=== PATIENT | female | born 1950 | race American Indian/Alaskan Native ===

== ENCOUNTER 2021-11-09 21:21 | Observation (INO) | payer MEDICARE ==
[2021-11-09] MEDS ORDERED: ONDANSETRON 4 MG/2 ML INJ IV ONE (21:47)
[2021-11-09] MEDS ORDERED: SODIUM CHLORIDE 0.9% 1000 ML 1,000 ML IV ONE (21:47)
--- NOTE | 2021-11-09 22:13 | Emergency Department Report ---
<DIMITRIS SEBASTIAN - Last Filed: 11/10/21 06:00> ED General Adult HPI - General Chief complaint: Hyperglycemia Stated complaint: HYPERGLYCEMIA Time Seen by Provider: 11/09/21 21:33 Source: patient, EMS Mode of arrival: Stretcher Limitations: No Limitations - History of Present Illness Initial comments: 71 yo F with h/o DM and Hypertension who is visiting daughter from [place] brought in by EMS with generalized weakness associated with unstable blood sugar. Pt says she arrived in [place] last Tuesday and have been having diarrhea since then couple with the above symptoms. She says her blood sugar could be 32 mg/dl in the morning and as high as 150 mg/dl in the afternoon. Appetite is down as well. No fever or chills reported. Pt denies any other modifying or associated factors. Pt daughter Lucy at [phone] who she was visiting left a note with patient that i should call her before any treatment is given. I called her and she confirmed the above story and added that patient has been noticed to be in rapid declined in the past few months. Pt and her was actually visiting [place] to look at properties as they were thinking of moving close to Lucy here in [place]. Pt was suppose to be flying back to [place] today when she went into the airport bathroom and forget how to unlock the door and they missed their flight as a result. She also mentioned that her mother was suppose to be in Stomach cancer remission but have been having intermittent abdominal distension and diarrhea in the last few months. Since she has been with her on Tuesday she has been in bed not eating or drinking much. She also have had a fall but patient denies any VILLAREAL or LOC. - Related Data Allergies Allergy/AdvReac Type Severity Reaction Status Date / Time No Known Allergies Allergy Unverified 11/09/21 21:27 ED Review of Systems Comment: All other systems reviewed and negative Constitutional: weakness Gastrointestinal: diarrhea Neurological: weakness ED Physical Exam - General Limitations: No Limitations General appearance: alert, in no apparent distress - Head Head exam: Present: atraumatic, normal inspection - Eye Eye exam: Present: normal appearance Pupils: Present: normal accommodation - ENT ENT exam: Present: normal exam, normal orophraynx, mucous membranes dry - Neck Neck exam: Present: normal inspection, full ROM. Absent: tenderness - Respiratory Respiratory exam: Present: normal lung sounds bilaterally. Absent: respiratory distress, accessory muscle use - Cardiovascular Cardiovascular Exam: Present: regular rate, normal rhythm, normal heart sounds - GI/Abdominal GI/Abdominal exam: Present: soft, normal bowel sounds. Absent: distended, tenderness - Extremities Exam Extremities exam: Present: normal inspection, normal capillary refill. Absent: pedal edema - Back Exam Back exam: Absent: tenderness - Neurological Exam Neurological exam: Present: alert, oriented X3 - Psychiatric Psychiatric exam: Present: normal affect, normal mood - Skin Skin exam: Present: warm, normal color ED Course - Reevaluation(s) Reevaluation #1: 11/10/21 05:20 given aspirin for likely pericarditis Reevaluation #2: 11/10/21 05:25 Pt signed out to Dr Ohara while waiting for the UA to determine antibiotics need-- considering this patient age may need to be admitted for observation. Reevaluation #3: 11/10/21 06:00 Pt signed out to Dr Ohara while waiting for urinalysis-- and will need to call patient's daughter Lucy at [phone] and explain the likelihood of admission and the walking diagnosis acute renal injury, dehydration, hyperglycemia and anemia. ED Medical Decision Making - Lab Data Result diagrams: 11/09/21 21:59 11/09/21 21:59 - EKG Data -: EKG Interpreted by Me EKG shows normal: sinus rhythm - EKG Data 11/10/21 05:19 Noted with sinus dysrhythmia at the rate of 73 bpm suggestive of acute pericarditis - Medical Decision Making here with generalized weakness associated with diarrhea with hypoglycemia-- this patient diarrhea could have cause her generalized weakness and hypoglycemia could have contributed to her weakness as well. Not eating and drinking could have caused dehydration which could lead to weakness Noted with likely pericarditis on EKG but with normal troponin-- given aspirin Also noted with elevated BNU/Cr 32/2.4 likely as result of dehydration -- will continue to hydration with ivf ns 1L bolus x 1-- Blood sugar at 276 with unremarkable anion cap -- given insulin 5 units and hydration with ns -- will recheck blood sugar Also noted with low H&H 8.9/27.2 and patient denies any bloody stool-- this is likely chronic -- ED Disposition Clinical Impression: Generalized weakness, Dehydration, Hyperglycemia, Renal insufficiency, mild, UTI (urinary tract infection), AMS (altered mental status), Brittle diabetes mellitus, Creatinine elevation Disposition: 02 SHORT TERM [facility]OSPITAL Is pt being admited?: No Does the pt Need Aspirin: No Condition: Stable Referrals: PRIMARY CARE, [Primary Care Provider] - 3-5 Days <KARSTEN MOSES - Last Filed: 11/10/21 10:29> ED Review of Systems ROS: Stated complaint: HYPERGLYCEMIA Other details as noted in HPI ED Course Vital Signs 11/09/21 11/10/21 11/10/21 21:25 03:44 03:45 Temperature 98.1 F Pulse Rate 81 Respiratory 16 Rate Blood Pressure 127/77 Blood Pressure 137/77 [Right] O2 Sat by Pulse 100 85 88 Oximetry 11/10/21 11/10/21 11/10/21 04:00 04:16 04:30 Temperature Pulse Rate Respiratory Rate Blood Pressure 131/74 139/73 146/76 Blood Pressure [Right] O2 Sat by Pulse 91 92 92 Oximetry 11/10/21 11/10/21 11/10/21 04:46 05:00 05:16 Temperature Pulse Rate Respiratory Rate Blood Pressure 146/76 139/73 136/73 Blood Pressure [Right] O2 Sat by Pulse 90 89 92 Oximetry 11/10/21 11/10/21 11/10/21 05:30 05:46 06:00 Temperature Pulse Rate Respiratory Rate Blood Pressure 127/74 127/74 134/73 Blood Pressure [Right] O2 Sat by Pulse 93 93 92 Oximetry 11/10/21 11/10/21 11/10/21 06:16 06:30 06:56 Temperature Pulse Rate Respiratory Rate Blood Pressure 135/70 140/74 134/73 Blood Pressure [Right] O2 Sat by Pulse 91 91 99 Oximetry 11/10/21 07:00 Temperature Pulse Rate Respiratory Rate Blood Pressure 132/71 Blood Pressure [Right] O2 Sat by Pulse 96 Oximetry - Reevaluation(s) Reevaluation #4: 11/10/21 10:[address] ESPINOZA WHO STATES PATIENT WILL GO TO DR. SR. ED Medical Decision Making - Lab Data Result diagrams: 11/09/21 21:59 11/09/21 21:59 Critical care attestation.: If time is entered above; I have spent that time in minutes in the direct care of this critically ill patient, excluding procedure time. ED Disposition Is pt being admited?: Yes Time of Disposition: 10:27
[2021-11-09 22:19] LABS: Basophils # (Auto) 0.1 K/mm3 (0.0-0.1); Basophils % (Auto) 0.6 % (0.0-1.8); Eosinophils # (Auto) 0.3 K/mm3 (0.0-0.4); Hematocrit 27.2 % (30.3-42.9); Hemoglobin 8.9 gm/dl (10.1-14.3); Lymphocytes # (Auto) 1.5 K/mm3 (1.2-5.4); Lymphocytes % (Auto) 10.8 % (13.4-35.0); Mean Corpuscular HGB Conc 33 % (30-34); Mean Corpuscular Volume 87 fl (79-97); Monocytes # (Auto) 1.1 K/mm3 (0.0-0.8); Red Blood Count 3.13 M/mm3 (3.65-5.03); Red Cell Distribution Width 15.7 % (13.2-15.2)
[2021-11-09 22:31] LABS: Platelet Count 262 K/mm3 (140-440)
[2021-11-09 22:43] LABS: Albumin 3.1 g/dL (3.9-5); Calcium 9.5 mg/dL (8.4-10.2)
[2021-11-10] MEDS ORDERED: ASPIRIN 81 MG TAB CHEW PO ONE (05:19)
[2021-11-10] MEDS ORDERED: INSULIN REGULAR, HUMAN 100 UNITS/1 ML IV ONE (05:24)
[2021-11-10 07:07] LABS: Bacteria,Urine 2+ /HPF (Negative); Hyaline Casts,Urine 14 /LPF; Mucus,Urine 1+ /HPF
[2021-11-10 07:08] LABS: Bilirubin,Urine NEG (Negative); Blood,Urine Trace (Negative); Color,Urine Straw (Yellow)
[2021-11-10 07:09] LABS: Urobilinogen,Urine < 2.0 mg/dL (<2.0)
[2021-11-10] MEDS ORDERED: cefTRIAXone/NS 1 GM/50 ML 1 GM/50 ML BAG IV ONE (10:04)
[2021-11-10] MEDS ORDERED: cefTRIAXone/NS 1 GM/50 ML 1 GM/50 ML BAG IV SCH (11:30)
--- NOTE | 2021-11-10 12:53 | History and Physical Report ---
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 Pt says she arrived in [place] last Tuesday and have been having diarrhea since then. She says her blood sugar could be 32 mg/dl in the morning and as high as 150 mg/dl in the afternoon. Appetite is down as well. No fever or chills reported. Pt denies any other modifying or associated factors. Pt was suppose to be flying back to [place] today when she went into the airport bathroom and forget how to unlock the door and they missed their flight as a result. She also have had a fall but patient denies any VILLAREAL or LOC. In the ER work-up significant for possible UTI, NAEEM with hyperkalemia and leukocytosis. Patient is alert awake and oriented x3 during my encounter and able to provide history. Patient is being admitted for further work-up. Review of System: Constitutional: no fever, no chills, no weight loss Ears, eyes, nose, mouth and throat: no nasal congestion, no nasal discharge, no sinus pressure, no vision change, no red eye. Neck: No neck pain or rigidity. Cardiovascular: No chest pain, no orthopnea, no palpitations, no leg swelling Respiratory: No shortness of breath, no cough, no congestion, no wheezing Gastrointestinal: no abdominal pain, no nausea, no vomiting Genitourinary : no dysuria, no hematuria Musculoskeletal: no joint swelling or muscle ache Integumentary: no rash, no pruritis Neurological: no parathesias, no numbness, no tingling Endocrine: no cold or heat intolerance, no polyuria or polydipsia Hematologic/Lymphatic: no easy bruising, no easy bleeding, no gland swelling Allergic/Immunologic: no urticaria, no angioedema. Past History Past Medical History: cancer (h/o Ca stomach on 2004), diabetes, hypertension, hyperlipidemia Past Surgical History: bowel surgery Social history: Lives alone. denies: smoking, alcohol abuse Family history: diabetes, hypertension Medications and Allergies Allergies Allergy/AdvReac Type Severity Reaction Status Date / Time No Known Allergies Allergy Unverified 11/09/21 21:27 Home Medications Medication Instructions Recorded Confirmed Last Taken Type Atorvastatin [Lipitor] 40 mg PO HS 11/10/21 11/10/21 11/09/21 History DULoxetine [Cymbalta] 60 mg PO DAILY 11/10/21 11/10/21 11/09/21 History Levothyroxine [Synthroid] 150 mcg PO DAILY 11/10/21 11/10/21 11/09/21 History Acetaminophen [Acetaminophen TAB] 650 mg PO Q4H PRN tablet 11/11/21 Unknown Rx Ciprofloxacin HCl [Ciprofloxacin 500 mg PO BID 3 Days #7 11/11/21 Unknown Rx TAB] Insulin Regular, Human [HumuLIN R] 0 units SUB-Q Q4H 30 Days 11/11/21 Unknown Rx amLODIPine 5 mg PO DAILY #30 11/11/21 Unknown Rx Active Meds: Active Medications Acetaminophen (Acetaminophen 325 Mg Tab) 650 mg PO Q4H PRN PRN Reason: Pain MILD(1-3)/Fever >100.5/VILLAREAL Hydrocodone Bitart/Acetaminophen (Hydrocodone/Acetaminophen 5-325 Mg Tab) 2 each PO Q6H PRN PRN Reason: Pain, Moderate (4-6) Famotidine (Famotidine 20 Mg Tab) 20 mg PO BID [facility] Heparin Sodium (Porcine) (Heparin 5,000 Unit/1 Ml Vial) 5,000 unit SUB-Q Q12HR [facility] Ceftriaxone Sodium (Rocephin/Ns 1 Gm/50 Ml) 1 gm in 50 mls @ 100 mls/hr IV ONC E@1130 MARIAELE[facility]; Protocol Stop: 11/14/21 14:30 Dextrose/Sodium Chloride (D5ns) 1,000 mls @ 75 mls/hr IV DIRECT [facility]IA[facility] Morphine Sulfate (Morphine 4 Mg/1 Ml Inj) 4 mg IV Q4H PRN PRN Reason: Pain , Severe (7-10) Ondansetron HCl (Ondansetron 4 Mg/2 Ml Inj) 4 mg IV Q8H PRN PRN Reason: Nausea And Vomiting Sodium Chloride (Sodium Chloride 0.9% 10 Ml Flush Syringe) 10 ml IV BID [facility] Sodium Chloride (Sodium Chloride 0.9% 10 Ml Flush Syringe) 10 ml IV PRN PRN PRN Reason: LINE FLUSH Exam - Physical Exam Narrative exam: GENERAL: well-developed and morbidly obese -[place] female lying on bed appeared to be in no discomfort. HEENT: Normocephalic. Atraumatic. No conjunctival congestion or icterus. Patient has moist mucous membranes. NECK: Supple. Trachea midline. CHEST/LUNGS: Clear to auscultated bilaterally, breathing nonlabored. No wheezes crackles or rhonchi. HEART/CARDIOVASCULAR: Regular in rate and rhythm. S1 and S2 positive. ABDOMEN: Abdomen is soft, nontender. Patient has normal bowel sounds. SKIN: There is no rash. Warm and dry. NEURO: No focal motor deficit. Follows command. MUSCULOSKELETAL: No joint effusion or tenderness. EXTRIMITY: No edema, no cyanosis or clubbing. PSYCH: Cooperative. - Constitutional Vitals: Temp Pulse Resp BP Pulse Ox 98.1 F 81 16 159/76 93 11/09/21 21:25 11/09/21 21:25 11/09/21 21:25 11/10/21 11:46 11/10/21 11:46 Results - Labs CBC & Chem 7: 11/09/21 21:59 11/11/21 04:04 Labs: Abnormal lab results 11/09/21 11/09/21 11/10/21 Range/Units 21:59 21:59 06:34 WBC 14.0 H (4.5-11.0) K/mm3 RBC 3.13 L (3.65-5.03) M/mm3 Hgb 8.9 L (10.1-14.3) gm/dl Hct 27.2 L (30.3-42.9) % RDW 15.7 H (13.2-15.2) % Lymph % (Auto) 10.8 L (13.4-35.0) % Wilson % (Auto) 8.0 H (0.0-7.3) % Wilson # (Auto) 1.1 H (0.0-0.8) K/mm3 Seg Neutrophils % 78.6 H (40.0-70.0) % Seg Neutrophils # 11.0 H (1.8-7.7) K/mm3 Sodium 132 L (137-145) mmol/L Potassium 5.3 H (3.6-5.0) mmol/L BUN 32 H (7-17) mg/dL Creatinine 2.1 H (0.6-1.2) mg/dL Glucose 276 H (65-100) mg/dL POC Glucose 135 H (70-105) mg/dL Alkaline Phosphatase 144 H (35-129) units/L Albumin 3.1 L (3.9-5) g/dL Urine WBC (Auto) (0.0-6.0) /HPF 11/10/21 11/10/21 Range/Units 12:23 Unknown WBC (4.5-11.0) K/mm3 RBC (3.65-5.03) M/mm3 Hgb (10.1-14.3) gm/dl Hct (30.3-42.9) % RDW (13.2-15.2) % Lymph % (Auto) (13.4-35.0) % Wilson % (Auto) (0.0-7.3) % Wilson # (Auto) (0.0-0.8) K/mm3 Seg Neutrophils % (40.0-70.0) % Seg Neutrophils # (1.8-7.7) K/mm3 Sodium (137-145) mmol/L Potassium (3.6-5.0) mmol/L BUN (7-17) mg/dL Creatinine (0.6-1.2) mg/dL Glucose (65-100) mg/dL POC Glucose 127 H (70-105) mg/dL Alkaline Phosphatase (35-129) units/L Albumin (3.9-5) g/dL Urine WBC (Auto) 13.0 H (0.0-6.0) /HPF - Imaging and Cardiology CT scan - abdomen: pending CT Scan - head: pending Assessment and Plan -- SIRS -- Acute metabolic encephalopathy -- NAEEM, likely vasomotor nephropathy from dehydration --Hyperkalemia -- UTI -- Diarrhea -- Diabetes mellitus type 2 -- Hypertension --hyperlipidemia -- Neuropathy -- Dehydration -- Physical debility --Status post fall -- History of stomach cancer now on surveillance --Morbid obesity Admit this patient with telemetry Continue IV fluid hydration, continue empiric antibiotics, ordered urine culture blood culture We will also order CT head without contrast, TSH, B12, vitamin D level Will order CT abdomen pelvis, will check for C. difficile and COVID-19 Continue IV fluid, speech eval, PT OT Sliding scale insulin, hold oral hypoglycemics, IV hydralazine as needed for BP control Continue to provide supportive care, monitor clinically SCD for DVT prophylaxis Monitor CBC and BMP
[2021-11-10] MEDS ORDERED: ACETAMINOPHEN 325 MG TAB PO PRN (13:00)
[2021-11-10] MEDS ORDERED: D5W/0.9% NACL 1,000 ML IV SCH (13:00)
[2021-11-10] MEDS ORDERED: HYDROcodone/ACETAMINOPHEN 5-325 MG TAB PO PRN (13:00)
[2021-11-10] MEDS ORDERED: MORPHINE 4 MG/1 ML INJ IV PRN (13:00)
[2021-11-10] MEDS: FAMOTIDINE 20 MG TAB PO SCH ×2 (13:57→21:20)
[2021-11-10] MEDS ORDERED: ONDANSETRON 4 MG/2 ML INJ IV PRN (14:00)
--- NOTE | 2021-11-10 15:59 | Cat Scan Report ---
CT head/brain wo con INDICATION / CLINICAL INFORMATION: 71 years Female; AMS. TECHNIQUE: Routine CT head without contrast. All CT scans at this location are performed using CT dos e reduction for ALARA by means of automated exposure control. COMPARISON: None. FINDINGS: BRAIN / INTRACRANIAL CONTENTS: There is mild cerebral white matter disease most consistent with micro vascular angiopathy. There is also mild cerebral atrophy. The ventricular system is correspondingly a ppropriate in size and configuration. There are incidental foci of calcification within the basal hector glia. There is no clear CT evidence of acute intracranial hemorrhage or significant mass effect. ORBITS: No significant abnormality of visualized orbits. SINUSES / MASTOIDS: No significant abnormality in the visualized paranasal sinuses or mastoid air anthony ls. CRANIOCERVICAL JUNCTION: No significant abnormality. ADDITIONAL FINDINGS: None. IMPRESSION: 1. There is mild microvascular angiopathy and cerebral atrophy without CT evidence of acute intracran ial hemorrhage. Signer Name: Tripp Freitas MD Signed: 11/10/2021 3:55 PM Workstation Name: [id number]
--- NOTE | 2021-11-10 16:04 | Cat Scan Report ---
CT ABDOMEN AND PELVIS WITHOUT CONTRAST INDICATION / CLINICAL INFORMATION: diarrhea with h/o stomach cancer. TECHNIQUE: Axial CT images were obtained through the abdomen and pelvis without IV contrast. All CT scans at this location are performed using CT dose reduction for ALARA by means of automated exposure control. COMPARISON: None available. FINDINGS: LOWER CHEST: Scattered atelectasis. AORTA / ARTERIES: Mild atherosclerotic calcification without acute abnormality. IVC / VEINS: No significant abnormality. LYMPH NODES: No significant adenopathy. COLON: Postoperative change to the proximal colon; otherwise, no significant abnormality. APPENDIX: Appendectomy. STOMACH / SMALL BOWEL: No significant abnormality. PERITONEUM: No free fluid. No free air. No fluid collection. LIVER: No significant abnormality. GALLBLADDER: Uncomplicated cholelithiasis. BILE DUCTS: No significant abnormality. PANCREAS: No significant abnormality. SPLEEN: No significant abnormality. ADRENALS: No significant abnormality. RIGHT KIDNEY / URETER: No significant abnormality. LEFT KIDNEY / URETER: No significant abnormality. URINARY BLADDER: No significant abnormality. REPRODUCTIVE ORGANS: No significant abnormality. SKELETAL SYSTEM: Increased density and thickened trabecula of the left iliac bone suggesting possible Paget's disease. ADDITIONAL FINDINGS: None. IMPRESSION: 1. No CT findings to explain symptomatology. 2. Additional findings as above. Signer Name: Donnie Byrnes DO Signed: 11/10/2021 4:00 PM Workstation Name: [id number]
[2021-11-10] MEDS ORDERED: hydrALAZINE 20 MG/1 ML INJ IV PRN (16:32)
[2021-11-10 16:50] LABS: Calcium 9.8 mg/dL (8.4-10.2)
[2021-11-10] MEDS ORDERED: SODIUM CHLORIDE 0.9% 1000 ML 1,000 ML IV SCH (17:00)
[2021-11-10] MEDS: INSULIN REGULAR, HUMAN 100 UNITS/1 ML SUB-Q SCH ×3 (17:58→23:01)
[2021-11-10] MEDS: HEPARIN 5,000 UNIT/1 ML VIAL SUB-Q SCH (21:20)
[2021-11-11] MEDS: INSULIN REGULAR, HUMAN 100 UNITS/1 ML SUB-Q SCH ×4 (04:32→16:44)
[2021-11-11 05:10] LABS: Calcium 9.7 mg/dL (8.4-10.2)
[2021-11-11] MEDS: FAMOTIDINE 20 MG TAB PO SCH (09:03)
[2021-11-11] MEDS: HEPARIN 5,000 UNIT/1 ML VIAL SUB-Q SCH (09:03)
[2021-11-11] MEDS ORDERED: cefTRIAXone/NS 1 GM/50 ML 1 GM/50 ML BAG IV SCH (10:00)
[2021-11-11 15:42] VITALS: BP 161/80
[2021-11-11] MEDS ORDERED: NON-FORMULARY EACH (Amlodipine 5 MG) PO SCH (16:00)
--- NOTE | 2021-11-11 16:17 | Discharge Summary ---
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 Pt was suppose to be flying back to [place] but when she went into the airport bathroom and forget how to unlock the door and they missed their flight as a result. In the ER work-up significant for possible UTI, NAEEM with hyperkalemia and leukocytosis. Patient was alert awake and oriented x3 during my encounter and able to provide history. Patient was being admitted for further work-up. Patient was further evaluated with a CT head which showed no acute intracranial process. CT abdomen pelvis was also unremarkable. Patient was placed on IV fluid, oral hypoglycemics were on hold, also held her gabapentin and Lyrica. Patient was started on empiric antibiotic for UTI. Patient remains afebrile, creatinine improved with IV fluid hydration. Patient was tolerating diet and evaluated by physical therapy which recommended home health. Test results and findings were thoroughly discussed with the patient daughter. Patient and patient daughter was recommended to manage her blood glucose with sliding scale of insulin only. Patient will continue to hold oral hypoglycemics and her gabapentin/Lyrica. Home medications were reevaluated and readjusted. Patient was clinically stable, family wanted to have further follow-up with her primary care doctor at [place]. Patient was then discharged home in stable condition with outpatient follow-up. Disposition: HOME / SELF CARE / HOMELESS Final Discharge Diagnosis (Prints w/discharge instructions): -- SIRS. -- Acute metabolic encephalopathy. -- NAEEM, likely vasomotor nephropathy from dehydration. --Hyperkalemia. -- UTI. -- Diarrhea. -- Diabetes mellitus type 2. -- Hypertension. --hyperlipidemia. --Diabetic neuropathy. -- Dehydration. -- Physical debility. -- History of stomach cancer now on surveillance. --Orthostatic hypotension, cleared by PT. --Morbid obesity. --s/p fall Time spent for discharge: 34 minutes Core Measure Documentation - Palliative Care Palliative Care/ Comfort Measures: Not Applicable - Core Measures Any of the following diagnoses?: none Exam - Physical Exam Narrative exam: GENERAL: well-developed and morbidly obese -[place] female lying on bed appeared to be in no discomfort. HEENT: Normocephalic. Atraumatic. No conjunctival congestion or icterus. Patient has moist mucous membranes. NECK: Supple. Trachea midline. CHEST/LUNGS: Clear to auscultated bilaterally, breathing nonlabored. No wheezes crackles or rhonchi. HEART/CARDIOVASCULAR: Regular in rate and rhythm. S1 and S2 positive. ABDOMEN: Abdomen is soft, nontender. Patient has normal bowel sounds. SKIN: There is no rash. Warm and dry. NEURO: No focal motor deficit. Follows command. MUSCULOSKELETAL: No joint effusion or tenderness. EXTRIMITY: No edema, no cyanosis or clubbing. PSYCH: Cooperative. - Constitutional Vitals: Temp Pulse Resp BP Pulse Ox 98.6 F 92 H 18 161/80 94 11/11/21 15:40 11/11/21 15:40 11/11/21 15:40 11/11/21 15:40 11/11/21 15:40 Plan Activity: advance as tolerated Weight Bearing Status: Weight Bear as Tolerated Diet: diabetic Special Instructions: record daily BP diary Additional Instructions: Repeat BMP in one week. Outpatient sleep study for possible sleep apnea. Continue to hold gabapentin, lyrica, tramadol, oral diabetic medications and continue diabetic diet. Use tylenol as needed for pain. Please maintain your blood glucose with sliding scale of insulin only until cleared by PCP. Please follow following insulin regimen protocol to manage your blood glucose. BG 150-199: Apply 2 units. BG 200-249: apply 4 units. BG 250 -299: apply 6 units. BG >300 apply 8 units, >350 x2 call PCP Follow up with: PRIMARY CARE, [Primary Care Provider] - 3-5 Days Prescriptions: amLODIPine 5 mg PO DAILY #30 Ciprofloxacin HCl [Ciprofloxacin TAB] 500 mg PO BID 3 Days #7 Insulin Regular, Human [HumuLIN R] 0 units SUB-Q Q4H 30 Days
[2021-11-11] MEDS ORDERED: DULoxetine 30 MG CAP PO SCH (16:30)
[2021-11-11] MEDS ORDERED: amLODIPine 5 MG TAB PO SCH (17:00)
[2021-11-11] MEDS ORDERED: GABAPENTIN 300 MG CAP PO SCH (22:00)
[2021-11-12] MEDS ORDERED: LEVOTHYROXINE 150 MCG TAB PO SCH (06:00)
--- NOTE | 2021-11-12 18:49 | Electrocardiograph Report ---
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
--- NOTE | 2021-11-12 18:52 | Electrocardiograph Report ---
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
[2021-11-14 12:02] LABS: Vitamin D, 25-OH, D2 <4 ng/mL
== END 2021-11-11 18:28 | disposition home or self-care (01) ==
LOC: ED 21:21 → 4A 11-10 12:38 → INTOOBSV 11-10 12:38 → 4A 11-10 17:26
PROVIDERS: ADMIT Internal Medicine; ATTEND Internal Medicine
DX: G93.41 Metabolic encephalopathy (principal); Z20.822 Contact with and (suspected) exposure to COVID-19; R65.10 Systemic inflammatory response syndrome (SIRS) of non-infectious origin without acute organ dysfunction; N17.9 Acute kidney failure, unspecified; E87.5 Hyperkalemia; N39.0 Urinary tract infection, site not specified; I10 Essential (primary) hypertension; E11.9 Type 2 diabetes mellitus without complications; R19.7 Diarrhea, unspecified; E78.5 Hyperlipidemia, unspecified; G62.9 Polyneuropathy, unspecified; E86.0 Dehydration; E66.01 Morbid (severe) obesity due to excess calories; R41.82 Altered mental status, unspecified; R77.8 Other specified abnormalities of plasma proteins; Z79.899 Other long term (current) drug therapy; Z98.890 Other specified postprocedural states; Z79.4 Long term (current) use of insulin; Z85.028 Personal history of other malignant neoplasm of stomach; Z68.39 Body mass index [BMI] 39.0-39.9, adult
CPT/HCPCS: 36415; 70450; 74176; 80048; 80053; 81001; 82306; 82607; 82962; 84439; 84443; 85025; 87040; 87086; 93005; 96361; 96372; 96374; 97162; 99284; G0378; J0696; J1644; J2405; J7030; U0003; Q9967; J1815